=== PATIENT | male | born 1990 | race Caucasian/White ===

== ENCOUNTER → 2020-11-12 11:12 | Outpatient (CLI) | payer OTHER, SELFPAY ==
[2015-02-07 23:48] VITALS: BMI 29.5
[2020-11-12 14:51] LABS: Absolute Lymphocyte Count 2.18 X10^3/uL (0.83-4.51); Absolute Neutrophil Count 4.3 X10^3/uL (2.0-7.7); Basophil# 0.02 X10^3/uL; Basophil% 0.3 % (0-1); Eosinophil# 0.07 X10^3/uL; Hematocrit 46.4 % (40-54); Hemoglobin 15.4 g/dL (13.0-16.5); Lymphocyte # 2.18 X10^3/ul (0.83-4.51); Lymphocyte % 30.7 % (19-41); Mean Corp Hgb Conc 33.2 g/dL (32-36); Mean Corpuscular Hgb 29.4 pg (27.0-32.0); Mean Corpuscular Volume 88.7 fL (80-94); Mean Platelet Vol. 12.1 fl (6.2-12.0); Monocyte% 7.1 % (0-10); NRBC Flagged by Analyzer 0 % (0-5); Neutrophil % 60.6 % (47-70); Platelet Count 234 K/mm3 (150-450); RBC Distribution Width CV 12.1 % (11.6-14.6); RBC Distribution Width SD 38.9 fl (35.1-43.9); Red Blood Count 5.23 M/mm3 (4.6-6.2); White Blood Count 7.1 K/mm3 (4.4-11.0)
[2020-11-12 15:22] LABS: Anion Gap 4 (5-15); BUN 11 mg/dL (7-18); Calcium,Total 8.4 mg/dL (8.5-10.1); Chloride 106 mmol/L (98-107); EST Glomerular Filtration Rate 84 mL/min (>60); Est Glom Filt Rate - Afr Amer 101 mL/min (>60); Glucose 92 mg/dL (74-106); Potassium 3.8 mmol/L (3.5-5.1); Sodium Level 139 mmol/L (136-145); Thyroid Stim Hormone (TSH) 1.31 uIU/mL (0.358-3.74)
== END ==
PROVIDERS: PCP Family Medicine; Referring Provider Family Medicine; Visit Provider Family Medicine
DX: R55 Syncope and collapse (principal)
CPT/HCPCS: 36415; 80048; 84443; 85025

== ENCOUNTER 2020-12-17 22:07 | Emergency (ER) | payer OTHER, SELFPAY ==
[2020-12-17 22:09] VITALS: BP 147/88; PULSE 99; RESP 18; TEMP 36.9; O2SAT 98; BMI 34.7
--- NOTE | 2020-12-17 22:32 | EKG12_ITS ---
Test Reason : CP Blood Pressure : / mmHG Vent. Rate : 085 BPM Atrial Rate : 085 BPM P-R Int : 148 ms QRS Dur : 096 ms QT Int : 370 ms P-R-T Axes : 040 066 036 degrees QTc Int : 440 ms Normal sinus rhythm with sinus arrhythmia Normal ECG Confirmed by JEF FREEMAN, AMILCAR ([id number]), industrial editor SHEFALI TRIPATHI ([id number]) on 12/19/2020 9:48:52 AM Referred By: ANKIT Confirmed By:AMILCAR FUCHS MD
--- NOTE | 2020-12-17 22:35 | EDS_ITS ---
HPI History of Present Illness Chief Complaint: Chest Pain Informant: patient Narrative Narrative: Patient is a 30-year-old previously healthy male who presents to the emergency department for chest pain. He states this started around to half hour prior to arrival in the ED. He described it as a pressure sensation. It did go into his back. It is mostly substernal. He denies ever having it before in the past. He denies any significant shortness of breath with this. No heart palpitations. No lightheadedness or syncope episodes. He denies any recent illness including any cough, cold, congestion. No fevers or chills. No nausea/vomiting. Denies any leg swelling or calf pain. He states that his father does have a history of CAD with bypass at the age of late 50s. Patient states he does smoke cigarettes sometimes. [facility] Home Medications NK 12/17/20 [History Last Taken Unknown] Allergy/AdvReac Type Severity Reaction Status Date / Time No Known Allergies Allergy Verified 12/17/20 22:09 Social History Smoking Status: Current every day smoker tobacco type: cigarettes ROS ROS ED Constitutional Constitutional ED: Denies chills or fever(s) Eyes Eyes: Denies change in vision ENT ENT ED: Denies epistaxis or rhinorrhea Cardiovascular Cardiovascular: Reports chest pain; Denies palpitations Respiratory/Chest Respiratory/Chest: Denies cough, dyspnea or dyspnea on exertion Gastrointestinal Gastrointestinal: Denies abdominal pain, diarrhea, nausea or vomiting Musculoskeletal Musculoskeletal: Denies back pain or neck pain Integumentary Denies rash Neurologic Neurologic: Denies dizziness, headache(s) or weakness EXAM Physical Exam Const Vital Signs: 12/17/20 22:09 12/17/20 22:12 12/17/20 23:51 Temperature 98.5 F Temperature Source Oral Pulse Rate 99 62 Respiratory Rate 18 18 Respiratory Effort Normal Non-Labored Blood Pressure 147/88 H 118/72 Blood Pressure Mean 107 Pulse Ox 98 97 Oxygen Delivery Method Room Air Positive well nourished and well developed General Appearance ED: well developed and NAD HEENT Reports normocephalic and head/scalp atraumatic Eyes PERRL and EOMs intact bilaterally Neck supple Chest Wall inspection of chest normal Resp normal respiratory effort and clear to auscultation bilaterally Auscultation: Negative for rales, rhonchi or wheezes Cardio regular rate, regular rhythm and no murmurs GI normal to inspection, nondistended, normoactive bowel sounds and non-tender Palpation: soft; Negative for guarding or rebound tenderness present Extremity normal to inspection General Extremety ED: Negative for edema or tenderness General Extremity: Negative for edema Neuro oriented x3, CN's II-XII intact bilaterally and no sensory deficits noted Sensorium / Orientation: alert Motor Exam: strength 5/5 throughout Psych mental status grossly normal Skin no rashes or lesions noted Heart Score History: Slightly/Non-Suspicious ECG: Normal Age: </= 45 years Risk Factors: 1 or 2 Risk Factors Troponin: </= Normal Limit Score: 1 MDM MDM MDM Narrative Medical decision making narrative: Patient presents the ED for chest pain. This is not related to exertion. It is nonpleuritic. On arrival to the ED is not tachycardic and satting 98% on room air. He is in no acute distress. Patient has a low heart score. EKG, chest x-ray basic lab work obtained. Patient's work-up did not reveal any significant acute abnormality. Is not anemic. Does not have a high white blood cell count. No electrolyte disturbance. Troponin within normal limits. He is a heart score of 1. Low concern for aortic catastrophe, ACS or thromboembolism. On reevaluation patient is feeling better. Does feel comfortable being discharged home. He is to follow-up with his PCP. Return precautions are reviewed with him. He understands and is agreeable this plan. All questions were answered. Lab Data Labs: Laboratory Results - last 24 hr 12/17/20 12/17/20 22:10 22:10 WBC 8.1 RBC 5.31 Hgb 15.6 Hct 46.5 MCV 87.6 MCH 29.4 MCHC 33.5 RDW Std Deviation 38.7 RDW Coeff of Elizabeth 12.0 Plt Count 221 MPV 11.4 Immature Gran % (Auto) 0.100 Neut % (Auto) 55.1 Lymph % (Auto) 34.4 Elk % (Auto) 8.6 Eos % (Auto) 1.7 Baso % (Auto) 0.1 Absolute Neuts (auto) 4.4 Absolute Lymphs (auto) 2.77 Nucleated RBC % 0 Sodium 139 Potassium 3.6 Chloride 105 Carbon Dioxide 27.0 Anion Gap 7 BUN 13 Creatinine 1.23 Estim Creat Clear Calc 85.73 Est GFR (MDRD) Af Amer 89 Est GFR (MDRD) Non-Af 74 BUN/Creatinine Ratio 10.6 Glucose 131 H Calcium 8.7 Troponin I High Sens 3.0 Radiography Chest X-Ray - ED: 1 View (Single view portable x-ray interpreted by myself. Clear lung palomo bilaterally. No pleural effusions. Normal cardiac silhouette. Normal mediastinum. No acute cardiopulmonary abnormality.) Diagnostic Testing: Radiology Impression Chest X-Ray 12/17/20 22:41 IMPRESSION: No radiographic evidence of acute cardiopulmonary disease. at 2312 Reported and signed by: Rolo Sultana MD Electronically Signed: Rolo Sultana MD at 23:11 EDT Tel , Service support , EKG Initial EKG: Attestation: I personally reviewed and interpreted this EKG as follows: (Rate of 85 bpm and normal sinus rhythm. Normal intervals. Normal axis. No significant ST elevations or depressions. No T wave abnormalities.) Discharge Plan Triage Chief Complaint: Chest Pain ED Provider: Prabhjot Young Dx/Rx/DC Orders Clinical Impression: Chest pain Instructions: ED Chest Pain, Noncardiac Prescriptions: No Action NK RF: 0 Primary Care Provider: González Worthy Referrals: González Worthy MD [Primary Care Provider] - 3-5 Days Disposition Disposition: Home, Self Care Discharge Date/Time: 12/17/20 23:55
--- NOTE | 2020-12-17 22:41 | RAD_ITS ---
EXAM: XR CHEST, 1 VIEW : 1990 CLINICAL INDICATION: chest pain TECHNIQUE: Frontal view of the chest. This report was created using [employer] report generation technology. COMPARISON: None. FINDINGS: LUNGS AND PLEURAL SPACES: Unremarkable. No consolidation or edema. No pneumothorax. No effusion. HEART: Unremarkable. Cardiac silhouette not enlarged. MEDIASTINUM: Central airways and mediastinal contour are unremarkable. BONES/JOINTS: Unremarkable. SOFT TISSUES: Unremarkable. RAD/Chest 1 View (Portable) IMPRESSION: No radiographic evidence of acute cardiopulmonary disease. at 2312 Reported and signed by: Rolo Sultana MD Electronically Signed: Rolo Sultana MD at 23:11 EDT Tel , Service support ,
[2020-12-17 23:01] LABS: Absolute Lymphocyte Count 2.77 X10^3/uL (0.83-4.51); Absolute Neutrophil Count 4.4 X10^3/uL (2.0-7.7); Basophil# 0.01 X10^3/uL; Basophil% 0.1 % (0-1); Eosinophil# 0.14 X10^3/uL; Eosinophils% 1.7 % (0-5); Hematocrit 46.5 % (40-54); Hemoglobin 15.6 g/dL (13.0-16.5); Lymphocyte # 2.77 X10^3/ul (0.83-4.51); Lymphocyte % 34.4 % (19-41); Mean Corp Hgb Conc 33.5 g/dL (32-36); Mean Corpuscular Hgb 29.4 pg (27.0-32.0); Mean Corpuscular Volume 87.6 fL (80-94); Mean Platelet Vol. 11.4 fl (6.2-12.0); Monocyte# 0.69 X10^3/uL; Monocyte% 8.6 % (0-10); NRBC Flagged by Analyzer 0 % (0-5); Neutrophil # 4.44 X10^3/uL (2.7-7.7); Neutrophil % 55.1 % (47-70); Platelet Count 221 K/mm3 (150-450); RBC Distribution Width SD 38.7 fl (35.1-43.9); Red Blood Count 5.31 M/mm3 (4.6-6.2); White Blood Count 8.1 K/mm3 (4.4-11.0)
[2020-12-17 23:04] LABS: Anion Gap 7 (5-15); BUN 13 mg/dL (7-18); BUN/Creat Ratio 10.6 RATIO (10-20); Calcium,Total 8.7 mg/dL (8.5-10.1); Chloride 105 mmol/L (98-107); Creatinine, Serum 1.23 mg/dL (0.70-1.30); EST Glomerular Filtration Rate 74 mL/min (>60); Est Glom Filt Rate - Afr Amer 89 mL/min (>60); Estimated Creatinine Clearance 85.73 ml/min; Glucose 131 mg/dL (74-106); Potassium 3.6 mmol/L (3.5-5.1); Sodium Level 139 mmol/L (136-145)
[2020-12-17 23:51] VITALS: BP 118/72; PULSE 62; RESP 18; O2SAT 97
== END 2020-12-17 23:55 | disposition home or self-care (01) ==
PROVIDERS: Emergency Provider Emergency Medicine; PCP Family Medicine
DX: R07.9 Chest pain, unspecified (principal); F17.210 Nicotine dependence, cigarettes, uncomplicated
CPT/HCPCS: 71045; 80048; 84484; 85025; 93005; 99284

== ENCOUNTER → 2021-04-21 10:49 | Outpatient (CLI) | payer OTHER, SELFPAY ==
[2021-04-21 12:31] LABS: Absolute Lymphocyte Count 1.83 X10^3/uL (0.83-4.51); Absolute Neutrophil Count 2.6 X10^3/uL (2.0-7.7); Basophil# 0.01 X10^3/uL; Basophil% 0.2 % (0-1); Eosinophil# 0.03 X10^3/uL; Eosinophils% 0.6 % (0-5); Hematocrit 47.8 % (40-54); Lymphocyte # 1.83 X10^3/ul (0.83-4.51); Lymphocyte % 36.2 % (19-41); Mean Corp Hgb Conc 33.5 g/dL (32-36); Mean Corpuscular Hgb 29.4 pg (27.0-32.0); Mean Corpuscular Volume 87.7 fL (80-94); Mean Platelet Vol. 11.4 fl (6.2-12.0); Monocyte# 0.57 X10^3/uL; Monocyte% 11.3 % (0-10); NRBC Flagged by Analyzer 0 % (0-5); Neutrophil % 51.5 % (47-70); Platelet Count 241 K/mm3 (150-450); RBC Distribution Width CV 11.9 % (11.6-14.6); RBC Distribution Width SD 37.9 fl (35.1-43.9); Red Blood Count 5.45 M/mm3 (4.6-6.2); White Blood Count 5.1 K/mm3 (4.4-11.0)
[2021-04-21 12:39] LABS: Anion Gap 7 (5-15); BUN 12 mg/dL (7-18); BUN/Creat Ratio 10.3 RATIO (10-20); Calcium,Total 8.7 mg/dL (8.5-10.1); Chloride 103 mmol/L (98-107); Creatinine, Serum 1.16 mg/dL (0.70-1.30); EST Glomerular Filtration Rate 79 mL/min (>60); Est Glom Filt Rate - Afr Amer 95 mL/min (>60); Glucose 96 mg/dL (74-106); Potassium 3.9 mmol/L (3.5-5.1); Sodium Level 138 mmol/L (136-145)
== END ==
PROVIDERS: PCP Family Medicine; Visit Provider Physician Assistant Medical
DX: R00.0 Tachycardia, unspecified (principal); R07.9 Chest pain, unspecified; R55 Syncope and collapse
CPT/HCPCS: 36415; 80048; 85025

== ENCOUNTER → 2021-04-22 07:47 | Outpatient (CLI) | payer OTHER, SELFPAY ==
--- NOTE | 2021-04-22 07:49 | ECHOCS_ITS ---
Reason For Study: SYNCOPE/NEAR SYNCOPE Procedure This was a 2D Doppler, Color Flow transthoracic echocardiogram. The study was technically difficult. Contrast injection was performed. Exam performed in department. Left Ventricle Normal left ventricle. Left ventricular systolic function is normal. The estimated ejection fraction is 60 %. No regional wall motion abnormalities noted. Right Ventricle Normal RV size. Normal systolic function. Atria Normal left atrium. Normal right atrium. Mitral Valve Normal mitral valve. Tricuspid Valve Normal tricuspid valve. Aortic Valve Trisinus/trileaflet aortic valve. Normal aortic valve. Pulmonic Valve Normal pulmonic valve. Great Vessels Normal aortic root. The pulmonary artery is normal size. Normal inferior vena cava. Pericardium/Pleural No pericardial effusion. Medication 22 gauge I.V. with prn adaptor inserted into left arm. Diluted definity 3.5ml given slow IV push to enhance endocardial definition. MMode/2D Measurements & Calculations LVIDd: 5.1 cm IVSd: 0.95 cm Ao root diam: 3.1 cm LVIDs: 3.6 cm LVPWd: 0.97 cm RVDd: 3.7 cm FS: 30.2 % LAV(MOD-bp): 42.0 ml LVAd ap4: 36.9 cm2 SV(MOD-sp4): 64.7 ml LAV(MOD-bp) Indexed: 19.1 ml/m2 LVLd ap4: 9.4 cm LAV(MOD-sp2): 37.5 ml EDV(MOD-sp4): 118.8 ml LAV(MOD-sp4): 39.6 ml EDV(sp4-el): 122.6 ml LVAs ap4: 21.6 cm2 LVLs ap4: 7.4 cm ESV(MOD-sp4): 54.0 ml ESV(sp4-el): 53.6 ml EF(MOD-sp4): 54.5 % EF(sp4-el): 56.3 % SV(sp4-el): 69.0 ml LA A4 area: 16.9 cm2 LA dimension(2D): 3.7 cm RA A4 area: 12.5 cm2 Doppler Measurements & Calculations MV E max dat: 50.7 cm/sec Lat Peak E' Dat: 15.2 cm/sec Med Peak E' Dat: 9.3 cm/sec MV A max dat: 59.4 cm/sec E/E' lat: 3.3 E/E' med: 5.5 MV E/A: 0.85 Ao V2 max: 114.1 cm/sec LV V1 max: 102.5 cm/sec PA V2 max: 135.6 cm/sec Ao max P.2 mmHg LV V1 max P.2 mmHg PI end-d dat: 105.2 cm/sec TR max dat: 194.4 cm/sec TR max P.1 mmHg ECHO/Echo Complete W/ Contrast Interpretation Summary Normal left ventricle. Left ventricular systolic function is normal. The estimated ejection fraction is 60 %. Structurally normal valves. Contrast injection was performed. Ordering Physician: Sai Foster Referring Physician: AMILCAR FISH Performed By: Nyasia Thorne, YADIRA, RVT
--- NOTE | 2021-04-22 17:07 | PCM.TILTTABL ---
Summary Pre Test Resting HR: 95 Pre Test Resting BP: 144/73 Minimum Test HR: 84 Maximum Test HR: 117 Minimum Test BP: 134/91 Maximum Test BP: 162/82 Reason for Test Termination: Reached Maximum Test Time Physician Tilt Table Report Patient's Physicians Primary Care Physician: González Worthy Cnc Lathe Machinist: Sai Foster Indications/Diagnosis: Near syncope Procedure Comments: The patient was brought to the noninvasive lab in the postabsorptive nonsedated state. Informed consent was obtained. Baseline EKG was obtained. It demonstrated normal sinus rhythm with a rate of 95 bpm. Baseline blood pressure was 144/73 mmHg. The patient was then placed in the 70 degree head upright tilt table position for period of approximately 30 minutes. The patient maintained sinus rhythm throughout the recording with continuous EKG monitoring. The maximum heart rate attained was 118 bpm which was sinus tachycardia with a maximum blood pressure being 147/86 mmHg. The minimum heart rate was noted to be 84 bpm in sinus rhythm recorded at the end of the test. No hypotensive episodes were noted and no significant symptomatology was noted. The patient maintained sinus rhythm throughout the recording. Summary: Negative tilt table test for any cardiac dysrhythmias of vasodepressor symptoms/findings
[2021-04-22 17:10] VITALS: BP 134/91; BP 144/73; BP 162/82
== END ==
PROVIDERS: PCP Family Medicine; Referring Provider Internal Medicine Cardiovascular Disease; Visit Provider Internal Medicine Cardiovascular Disease
DX: R55 Syncope and collapse (principal); R00.0 Tachycardia, unspecified; R11.0 Nausea
CPT/HCPCS: 93306; 93660; J7040; Q9957; A4216; C8929; J3490

== ENCOUNTER 2021-05-21 05:18 | Day surgery (SDC) | payer OTHER, BC, SELFPAY ==
[2021-05-21] VITALS (7 sets, daily range): BP systolic 110–130; BP diastolic 66–75; PULSE 73–95; RESP 16; TEMP 36.1–36.7; O2SAT 94–98; BMI 35.9
[2021-05-21] MEDS: Lactated Ringers 1,000 ML 15 ML IV (05:40)
--- NOTE | 2021-05-21 06:30 | IMM_PTH ---
PATIENT: BELIA GARCIA LOC: EN U#:[id number] AGE/SX: 31/M ROOM: RE05/21/[address]: Dr. Ilan Eastman DO : 1990 BED: DIS: 05/21/2021 SPEC #: [id number] RECD: 05/21/21 13:37 STATUS: JULIO REQ #: [id number] KAITLYN: 05/21/21 06:[address]: Ilan Eastman DEPT: IMMUNOHISTOCHEMISTRY RECD BY: Sari Johnston ENTERED: 05/21/21 13:37 SP TYPE: IMMUNO OTHR DR: Dr. González Worthy MD Tissues: B - Stomach, NOS Procedures: H Pylori (initial) PHYSICIAN & INSTITUTION [place] [id number] SPECIMEN INFORMATION: Tissue Source: B ? Gastric antral biopsy Clinical Info: Nausea Specimen Number: [id number] CPT code: 68114 METHODOLOGY: Deparaffinized sections of prefer/formalin-fixed tissue or PAP/DQ stained slides are incubated with monoclonal/polyclonal antibodies/oligonucleotide probes. Localization is made via biotin free immunoperoxidase method. Appropriate controls are performed and reacted as expected. Results on target cell population are indicated in the following table: RESULTS: ANTIBODY / CLONE RESULT Block B H Pylori (polyclonal) negative These tests were developed and their performance characteristics determined by [facility]. They may not have been cleared or approved by the U.S. Food and Drug Administration. The FDA has determined that such clearance or approval is not necessary. INTERPRETATION: B. Gastric antral biopsy: Negative for Helicobacter pylori organisms. SJ:sree 05/22/2021
--- NOTE | 2021-05-21 06:30 | EGD_PTH ---
PATIENT: BELIA GARCIA LOC: EN U#:[id number] AGE/SX: 31/M ROOM: RE05/21/[address]: Dr. Ilan Eastman DO : 1990 BED: DIS: 05/21/2021 SPEC #: [id number] RECD: 05/21/21 10:37 STATUS: JULIO RESunny #: [id number] KAITLYN: 05/21/21 06:[address]: Ilan Eastman DEPT: SURGICAL PATHOLOGY RECD BY: Charlotte Lyle ENTERED: 05/21/21 12:24 SP TYPE: EGD BIOPSY OT DR: Dr. González Worthy MD Tissues: A - Duodenum, NOS B - Gastric mucous membrane C - Esophagus, NOS Procedures: Special Stain Group II Surgery Specimen Level IV Alcian Blue/PAS (control) HEADER OPERATION: EGD ([place]), [place] PH probe PRE-OP DIAGNOSIS: Nausea TISSUE SUBMITTED: A ? Duodenal biopsy, B ? Gastric antral biopsy for H. pylori and pathology, C ? Distal esophageal biopsy MICROSCOPIC DIAGNOSIS A. Duodenum, biopsy: Fragments of duodenal mucosa with mild Toshia gland hyperplasia. B. Gastric antrum, biopsy: Mild gastritis. See microscopic description and comment. C. Distal esophageal biopsy: Fragments of gastroesophageal mucosa with moderate chronic inflammation, congestion and hemorrhage. Intestinal metaplasia (goblet cell metaplasia) not identified. See comment. SJ:sree 05/22/2021 COMMENT B. The results of immunohistochemistry for Helicobacter pylori will be reported separately ([id number]). C. Alcian blue/PAS stain with matched control is used in the evaluation of the specimen. MICROSCOPIC DESCRIPTION Slides are reviewed. B. The specimen shows fragments of gastric mucosa with chronic inflammatory cell infiltrates in the lamina propria consisting of lymphocytes and plasma cells, consistent with mild chronic gastritis. Focal mucosal congestion is also noted. GROSS DESCRIPTION A - Received in fixative is one container labeled with the patient's name and designated duodenal biopsy. The specimen consists of multiple irregular fragments of light farah soft tissue that in aggregate measure 1.5 x 0.2 x 0.1 cm. The specimen is totally submitted in one cassette. B - Received in fixative is one container labeled with the patient's name and designated gastric antral biopsy. The specimen consists of multiple irregular fragments of light farah soft tissue that in aggregate measure 1 x 0.3 x 0.1 cm. The specimen is totally submitted in one cassette. C - Received in fixative is one container labeled with the patient's name and designated distal esophageal biopsy. The specimen consists of multiple irregular fragments of light farah soft tissue that in aggregate measure 1 x 0.8 x 0.1 cm. The specimen is totally submitted in one cassette. / SJ:rg 05/21/21 TC:3 CPT: 35289 x3, 28389
--- NOTE | 2021-05-21 06:43 | PCM.HP.BLA ---
History and Physical Date of Admission: 05/21/21 BELIA GARCIA, is a 31 M who presents with a forceful heartbeat that was followed by lightheadedness and near syncope. He did have a 24-hour Holter monitor which demonstrated an average heart rate of 64 bpm, minimum of 42 bpm and a maximum of 132 bpm which was in sinus rhythm. EKG from his emergency room visit in November demonstrated sinus rhythm with a rate of 85 bpm with sinus arrhythmia. He was started on metoprolol(this was started by and encouraged to have use ELIDA hose. Dr. Cronin worked him up for YESSY- this was negative. Pt does not feel any better on the metoprolol. He thinks that his issues were related to GI issues. He notes that when he stops his PPI he feels that he is nausea is back. This is chronic. He notes that when he over exerts himself he feels nauseated. He is able to go to the gym without issues. He finds that he needs to drink water to help with his symptoms. This is multiple times a day that this occurs. He feels that he gets overheated at times, thats when his nausea starts and feels like he might pass out. 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 Since July he has been having difficulty with feeling nauseous when riding in vehicles. He went to training in [facility] when he noted progression to feeling nauseous with emesis occurring with significant heat changes or his body temperature feels too warm but without physical exertion. However, definitive trigger not identified. Denies vertigo and spinning but reports a tunnel vision experience. PCP seen who felt it was sleep apnea, seen by inspector wire rope who referred to this office as there were no lung issues. Saw Straightener seen and given omeprazole 40mg BID. Omeprazole was unhelpful. Things that are helpful include position change, cool water bottle to lower body temperature. Seen by [facility] to r/o cardiac issues with no abnormal reported. Used Zegerid (20mg omeprazole with 1100mg sodium bicarbonate) and has found this to be most helpful. ROS Const Constitutional: Positive for weight change ENT ENT: Positive for nasal congestion and sore throat Cardio Cardiology: Positive for shortness of breath Gastro GI: Positive for bloating, heartburn and nausea/dyspepsia Psych Psychiatric: Positive for anxiety Endo Endocrine: Positive for weight change Exam Const General: cooperative and comfortable Nutritional Appearance: average body habitus and well nourished [facility] Head: normal to inspection Ears: hearing grossly normal bilaterally Nose: external nose normal Face and sinus: normal facial exam Mouth: oral mucosae normal Throat: posterior oropharynx normal Eyes General: appearance normal, both eyes and all related structures Neck Neck: normal visual inspection Chest Chest palpation & inspection: normal inspection of the chest and normal palpation of entire chest wall Resp Effort & Inspection: normal respiratory effort Auscultation: Bilateral: Clear to Auscultation Cardio Palpation: normal PMI Rate: regular rate Rhythm: regular rhythm GI Inspection: normal to inspection Auscultation: normal bowel sounds Percussion: normal to percussion Palpation: no hepatosplenomegaly Skin General: no rashes or lesions noted Neuro General: patient alert Extrem General: normal to inspection Psych Affect: normal affect Quality Reporting Tobacco Screening ([facility]) Smoking Status: Current every day smoker Assessment and Plan Assessment and Plan (1) Nausea: Status: Acute Orders: Orders: EGD with 48 pH probe Today Referrals: Gastroenterology Plan - Dr. Talavera Friend, DO: He could be having symptoms of atypical reflux disease. We will give him prescription for Dexilant as he got better with Zegerid therapy. Zegerid is 20 mg of omeprazole +20 mg of sodium bicarbonate. We will put him on Dexilant therapy which is 60 mg total with 40 mg of omeprazole 20 mg of sodium bicarbonate. We will also perform upper endoscopy with pH monitoring to see if he really has reflux disease. This will be on medicine. Plan Details Other Medications: New: dexlansoprazole (Dexilant) 60 mg PO DAILY 30 caps 1RF I have re-examined the patient. There are no clinical changes since date of exam.
--- NOTE | 2021-05-21 07:11 | OP.EGD_ITS ---
Patient Name: Yohannes Bridges Procedure Date: 05/21/2021 6:16 AM Date of : 1990 Age: 31 Procedure: Upper GI endoscopy Indications: Heartburn Providers: Ilan Eastman DO Medicines: See the Anesthesia note for documentation of the administered medications Patient Profile: This is a 31 year old male. Refer to note in patient chart for documentation of history and physical. Patient has symptoms of chronic nausea. Complications: No immediate complications. Procedure: Pre-Anesthesia Assessment: - Prior to the procedure, a History and Physical was performed, and patient medications and allergies were reviewed. The patient is competent. The risks and benefits of the procedure and the sedation options and risks were discussed with the patient. All questions were answered and informed consent was obtained. Patient identification and proposed procedure were verified by the physician in the pre-procedure area. Mental Status Examination: alert and oriented. Airway Examination: normal oropharyngeal airway and neck mobility. Respiratory Examination: clear to auscultation. CV Examination: normal. Prophylactic Antibiotics: The patient does not require prophylactic antibiotics. Prior Anticoagulants: The patient has taken no previous anticoagulant or antiplatelet agents. After reviewing the risks and benefits, the patient was deemed in satisfactory condition to undergo the procedure. The anesthesia plan was to use moderate sedation / analgesia (conscious sedation). Immediately prior to administration of medications, the patient was re-assessed for adequacy to receive sedatives. The heart rate, respiratory rate, oxygen saturations, blood pressure, adequacy of pulmonary ventilation, and response to care were monitored throughout the procedure. The physical status of the patient was re-assessed after the procedure. After obtaining informed consent, the endoscope was passed under direct vision. Throughout the procedure, the patient's blood pressure, pulse, and oxygen saturations were monitored continuously. The gastroscope was introduced through the mouth, and advanced to the second part of duodenum. The upper GI endoscopy was accomplished without difficulty. The patient tolerated the procedure well. Moderate Sedation: Moderate (conscious) sedation was administered by the endoscopy nurse and supervised by the endoscopist. The patient's oxygen saturation, heart rate, blood pressure and response to care were monitored. Total physician intraservice time was 15 minutes. Scope In: 6:48:32 AM Scope Out: 6:59:44 AM Total Procedure Duration Time 0 hours 11 minutes 12 seconds Findings: LA Grade C (one or more mucosal breaks continuous between tops of 2 or more mucosal folds, less than 75% circumference) esophagitis with no bleeding was found 37 to 40 cm from the incisors. Biopsies were taken with a cold forceps for histology. Verification of patient identification for the specimen was done. Estimated blood loss was minimal. The SHEPARD capsule with delivery system was introduced through the mouth and advanced into the esophagus, such that the SHEPARD pH capsule was positioned 32 cm from the incisors, which was 6 cm proximal to the GE junction. Suction was applied to the well of the SHEPARD pH capsule to suck in the adjacent mucosa of the esophagus using the external vacuum pump set at a minimum vacuum pressure of 550 mmHg for 30 seconds. The SHEPARD pH capsule was then deployed by depressing the plunger on top of the handle to advance the locking pin into the mucosa, thereby attaching the capsule to the esophagus. The plunger was then rotated a quarter turn clockwise to release the capsule from the delivery system. The delivery system was then withdrawn. Endoscopy was utilized for probe placement and diagnostic evaluation. A small hiatal hernia was present. Patchy mildly erythematous mucosa without bleeding was found at the pylorus. This was biopsied with a cold forceps for histology. Verification of patient identification for the specimen was done. Estimated blood loss was minimal. Patchy mildly erythematous mucosa without active bleeding and with no stigmata of bleeding was found in the first portion of the duodenum. Impression: - LA Grade C reflux esophagitis. Rule out Saldaña's esophagus. Biopsied. - Small hiatal hernia. - Erythematous mucosa in the pylorus. Biopsied. - Erythematous duodenopathy. - The SHEPARD pH capsule was positioned 32 cm from the incisors, which was 6 cm proximal to the GE junction. Recommendation: - Discharge patient to home. - Resume regular diet. - Continue present medications. - Await pathology results. - Repeat upper endoscopy in 1 year for surveillance based on pathology results. - Return to GI office in 2 weeks. Procedure Code(s): --- Professional --- 22176, Esophagogastroduodenoscopy, flexible, transoral; with biopsy, single or multiple 01964, Esophagus, gastroesophageal reflux test; with mucosal attached telemetry pH electrode placement, recording, analysis and interpretation 85651, 59, Moderate sedation services provided by the same physician or other qualified health healthcare network consultant performing the diagnostic or therapeutic service that the sedation supports, requiring the presence of an independent trained observer to assist in the monitoring of the patient's level of consciousness and physiological status; initial 15 minutes of intraservice time, patient age 5 years or older CPT copyright 2017 [employer]. All rights reserved. The codes documented in this report are preliminary and upon firer marine review may be revised to meet current compliance requirements. Ilan Eastman DO 05/21/2021 7:10:57 AM This report has been signed electronically. Number of Addenda: 1 Note Initiated On: 05/21/2021 6:16 AM Addendum Number: 1 Addendum Date: 01/28/2022 7:27:14 AM MAC was used instead of moderate sedation for the patient. Ilan Eastman DO 01/28/2022 7:27:18 AM This report has been signed electronically.
--- NOTE | 2021-05-21 07:12 | OP.CCLET_ITS ---
01/28/2022 González Worthy MD [address] [id number] Re : Upper GI endoscopy procedure for Yohannes Menjivarham Dear Dr. Worthy This procedure was performed on Friday, May 21, 2021. My impressions and recommendations are as follows: Impressions : - LA Grade C reflux esophagitis. Rule out Saldaña's esophagus. Biopsied. - Small hiatal hernia. - Erythematous mucosa in the pylorus. Biopsied. - Erythematous duodenopathy. - The SHEPARD pH capsule was positioned 32 cm from the incisors, which was 6 cm proximal to the GE junction. Recommendations : - Discharge patient to home. - Resume regular diet. - Continue present medications. - Await pathology results. - Repeat upper endoscopy in 1 year for surveillance based on pathology results. - Return to GI office in 2 weeks. My findings are described in the full procedure note, which is enclosed. If I can be of further assistance, please feel free to contact me at . Sincerely, Ilan Eastman, 05/21/2021 7:10:57 AM This report has been signed electronically.
--- NOTE | 2021-06-05 16:20 | PCM.OP.PRO ---
Assessment & Plan Assessment/Plan (1) Esophagitis: PLAN: 1. Erosive esophagitis proven by a DeMeester score of 37.1 on day 1 with maximal acid exposure in the supine position on day 1. 2. erosive esophagitis proven by DeMeester score of 42.4 on day 2 with maximum acid exposure in an upright position. Plan is for esophageal manometry to evaluate his esophagus to see if he can undergo possible fundoplication procedure. Procedure Report Yohannes is a very pleasant 31-year-old gentleman who underwent an upper endoscopy on PPI therapy for refractory reflux disease. He underwent an EGD and he had the presence of LA grade C erosive esophagitis that was seen. Biopsies were taken did not show any signs of Saldaña's esophagus. He was also determined to have an incompetent lower esophageal sphincter. 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 He had a pH Kimbrough probe placed at 34 cm from the incisors. His GE junction was at 40 cm. The medication that he was on during this procedure was omeprazole 40 mg twice a day. Findings: -Increased acid exposure throughout a 48-hour Kimbrough study. -DeMeester score on day 1 was 37.1 with maximal acid exposure in the upright position. -DeMeester score on day 2 was 42.4 with maximal acid exposure in the supine position. His symptom associated-probability for heartburn was 97.8% therefore regurgitation was 97.6%. Procedures Gastroenterology CF Procedures [id number]: [id number] G-esoph reflx tst w/electrod
== END 2021-05-21 08:01 | disposition home or self-care (01) ==
LOC: EN 05:21 → AC 05:21
PROVIDERS: PCP Family Medicine; Referring Provider Family Medicine; Visit Provider Internal Medicine Gastroenterology
PROC: 0DJ08ZZ Inspection of Upper Intestinal Tract, Via Natural or Artificial Opening Endoscopic (ICD-10-PCS; CPT 43235; principal; 2021-05-21 06:25)
DX: K44.9 Diaphragmatic hernia without obstruction or gangrene (principal); K21.00 Gastro-esophageal reflux disease with esophagitis, without bleeding; R55 Syncope and collapse; F17.200 Nicotine dependence, unspecified, uncomplicated; E66.9 Obesity, unspecified; Z68.35 Body mass index [BMI] 35.0-35.9, adult
CPT/HCPCS: 43239; 88305; 88313; 88342; J7120; J2405

== ENCOUNTER → 2021-07-03 08:45 | Day surgery (SDC) | payer OTHER, BC, SELFPAY ==
[2021-07-03 09:14] VITALS: BP 133/82; PULSE 69; RESP 16; TEMP 36.6; O2SAT 100
[2021-07-03] MEDS: Lidocaine Jelly 2% 20 ML Syringe (URO-JET) 1 APPLIC (09:15)
== END ==
PROVIDERS: PCP Family Medicine; Referring Provider Family Medicine; Visit Provider Internal Medicine Gastroenterology
PROC: F00ZJWZ Instrumental Swallowing and Oral Function Assessment using Swallowing Equipment (ICD-10-PCS; CPT 43235; principal; 2021-07-03 08:55)
DX: R13.10 Dysphagia, unspecified (principal)
CPT/HCPCS: 91010

== ENCOUNTER 2021-07-30 08:01 | Outpatient (CLI) | payer BC, OTHER, SELFPAY ==
--- NOTE | 2021-07-30 08:11 | RAD_ITS ---
STUDY: AIR CONTRAST UPPER GI SERIES and esophagram REASON FOR EXAM: Male, 31 years old. K44.9 - Diaphragmatic hernia without obstruction or gangrene FLUOROSCOPY TIME (if supplied): (36 seconds) minutes/seconds TECHNIQUE: Single CONTRAST AND AIR CONTRAST FLUOROSCOPIC IMAGES. COMPARISON: None. FINDINGS: The cervical esophagus demonstrates normal motility without aspiration. There is no stricture or extrinsic mass effect. No intraluminal polypoid mass is identified. The thoracic esophagus distends well without stricture or mucosal fold thickening. No mucosal ulcerations are identified. There is no extrinsic mass effect. There are no diverticula. No hiatal hernia or gastroesophageal reflux was identified. The patient ingested a 12 mm tablet of barium without any difficulty. The stomach distends well without mucosal fold thickening or mucosal ulceration. There is no intraluminal mass. The duodenal bulb is freely distensible without deformity or ulceration. The duodenal sweep is normal in position and caliber. RAD/Upper GI w/BA Swallow IMPRESSION: Normal air-contrast esophagram and upper GI series. Electronically Signed: Soren Corrales MD at 9:37 EST ,
== END 2021-07-30 23:59 | disposition home or self-care (01) ==
LOC: RAD 08:04
PROVIDERS: PCP Family Medicine; Visit Provider Surgery
DX: K44.9 Diaphragmatic hernia without obstruction or gangrene (principal); K22.4 Dyskinesia of esophagus
CPT/HCPCS: 74246

== ENCOUNTER 2021-08-26 08:35 | Day surgery (SDC) | payer BC, OTHER, SELFPAY ==
[2021-08-26] VITALS (7 sets, daily range): BP systolic 126–150; BP diastolic 74–79; PULSE 88–100; RESP 16–20; TEMP 36.4–36.6; O2SAT 95–99; BMI 38.2
[2021-08-26] MEDS: Lactated Ringers 1,000 ML 15 ML IV (08:45)
--- NOTE | 2021-08-26 09:58 | PCM.HP.BLA ---
History and Physical Date of Admission: 08/26/21 Date of Service: 08/04/21 MR#:[id number]:[id number]: BELIA GARCIA FLYNTRep #:[id number]:1990 Provider:Dr. Collin Rutledge MDAge/Sex: 31/M Location:[facility] [place].WSAStatus:Signed Intake Intake Visit Reasons: Follow up test 07/29 Chief Complaint: discuss results Housing Liaison Required: No Is patient in pain?: No Allergies No Known Allergies Allergy (Verified 08/04/21 08:07) Medications rabeprazole 20 mg tablet,delayed release 20 mg PO BID #60 tab 07/18/21 [Rx Confirmed 08/04/21] PFSH Medical History Alcohol use Anxiety Cardiology follow-up encounter Chest pain Esophagitis Former smoker Gastric reflux History of echocardiogram History of edema Leg cramps Marijuana use Obesity Syncope Tilt table evaluation Varicose vein of leg Surgical History History of esophagogastroduodenoscopy (EGD) (~06/2021) [place] teeth removed Family History Father CAD (coronary artery disease), Onset Age: 52 CABG Hypertension Myocardial infarction Social History Smoking Status: Former smoker HPI HPI HPI: BELIA GARCIA, is a 31 M who presents to the office today for complaints of acid reflux. Initial surgical consultation was 07/29/2021. Patient was then asked to undergo air-contrast esophagram and upper GI series. This he completed the following day on 07/30/2021. He presents today for these results. He denies any changes to his symptoms. He does confirm that he has decided for definitive management with surgery and that both his family and his workplace have pledged support to work around his postoperative recovery. Below is recapitulated from patient's surgical consultation for ease of review: They are referred for surgical consultation from Dr. Eastman of gastroenterology. Patient states that his symptoms began in August 2020. Gradually his symptoms increased in frequency and he initially thought that he was experiencing motion sickness as his nausea would correspond to road trips. However he began experiencing this nausea daily and would be at rest. He states that the symptoms came to a crescendo with a month-long training in [place] as part of his obligation. He noticed symptoms get significantly worse [place] and he became sick daily with hot flashes and sweaty palms. Symptoms were so significant he was dismissed 12 days early from this training and was sent for work-ups of vertigo, sleep apnea, or cardiogenic syncope. During this time, he noticed that lying flat made his symptoms worse. In addition to the nausea he experiences, he does feel acid in his throat and some associated burning. Following his work-ups for any neurologic or cardiogenic causes he was sent to Dr. Eastman who performed an EGD on 05/21/2021. During this investigation patient was diagnosed with LA grade C esophagitis and was placed on Dexilant and Carafate. He also had a pH probe placed during the scope and his final read out gave him a max DeMeester score of 37. In follow-up, he underwent esophageal manometry on 07/15/2021. Results of the study were finding of a slightly low lower esophageal sphincter pressure of 9.3 (range of normal 13-43). Patient states that he actually ran out of his PPI medication following the manometry study and immediately noticed a worsening of his symptoms. Now on medication, he still experiences symptoms at least once daily, but they are much milder. He also claims that the symptoms have a random onset and do not seem particularly linked to mealtimes. As part of his ongoing GI work-up, he was advised to refrain from gluten products and this is something that he has been sticking to, but he was not otherwise restricting other food triggers such as marinara sauces, caffeine, chocolate, etc. He admits that now that he improving with his symptoms he has noticed a small weight gain. Yet the symptoms remain so significant that he is looking to leave his obligation in September 2021?a decision that has not been easy for him as he really did wish to remain in service longer. ROS General General: Yes weight change; No appetite, fatigue, colon cancer, breast cancer or weakness HEENT HEENT: No difficulty swallowing, eye injury, eye surgery, swollen glands or hoarseness Endo Endocrine: No thyroid disease, diabetes mellitus, thyroid cancer, Hair loss, heat intolerance or cold intolerance Musc Musculoskeletal: No back problems, arthritis, rheumatoid arthritis, gout or joint pain Cardio Cardiovascular: No murmur, pacemaker, heart disease, atrial fibrillation, high blood pressure, heart attack, heart stent, palpitations, shortness of breat with exertion or chest pain Psych Psychiatric: No depression, anxiety or hearing voices Resp Respiratory: No shortness of breath, No sleep apnea, No cough, No COPD, No asthma, No emphysema and No wheezing Gastro Gastrointestinal: No abdominal pain, Yes nausea or vomiting, No diarrhea, No constipation, No blood in stool, Yes acid reflux, No hemorrhoids, No ulcers, No gallbladder problem and No black,tarry stools Samson Hematologic: No blood thinners, No blood disorders, No bleeding, No anemia and No blood clots Neuro Neurologic: No weakness Exam Const General: cooperative and healthy appearing Nutritional Appearance: average body habitus Orientation: alert, awake and oriented x3 Assessment and Plan Assessment and Plan (1) Hiatal hernia with GERD: Status: Acute Comment: This is a 31-year-old male with diagnosis of gastroesophageal reflux disease who presents following a significant work-up by gastroenterology for consideration of possible antireflux surgery. His symptoms are admittedly better on medication, but there is a refractory component to them that have led him to alter his life plans (forcing him to leave the early). Work-up to date has included EGD visualizing a hiatal hernia and LA class C esophagitis. pH probe placed during this exam returned a DeMeester score of 37. Follow-up esophageal manometry showed a lower than normal resting LES pressure. Patient completed his air-contrast/barium esophagram and this was read as a normal study. There was specifically no hiatal hernia or gastroesophageal reflux identified. However, given the patient's prior EGD and pH probe findings, this result is taken simply as confirmation of no additional pathology. Therefore, I recommend proceeding with laparoscopic hiatal hernia repair and Sugey fundoplication as previously described to the patient. We again reviewed postoperative expectations and the possibility that he may require overnight observation if he is unable to tolerate p.o. intake postop. He expresses an understanding of this information and has only few questions related to his leave from work. Plan - Dr. Collin Rutledge MD: Schedule for laparoscopic hiatal hernia repair with Sugey fundoplication. Plan for outpatient surgery, but observational stay may be required. I have re-examined the patient. There are no clinical changes since date of exam. Patient states his reflux symptoms have been tolerable. He presents with his and neither have any further questions regarding the procedure. Therefore, we will plan to proceed to the OR for laparoscopic hiatal repair and Sugey fundoplication as discussed above.
[2021-08-26] MEDS: Cefazolin 2 GM in 0.9% Normal Saline 100 ML IV (10:43)
[2021-08-26] MEDS: Bupivacaine Mpf 0.5% 30 ML VIAL (14:17)
[2021-08-26] MEDS: Lidocaine 1% (50 ml mdv) 50 ML Vial (14:17)
--- NOTE | 2021-08-26 14:30 | PCM.OPRPT ---
Report of Operation Date of Procedure: 08/26/21 Pre-Operative Diagnosis: 1. Gastroesophageal reflux disease 2. Hiatal hernia Post-Operative Diagnosis: Same Surgery/Procedure Performed:: 1. Laparoscopic hiatal hernia repair 2. Laparoscopic Sugey fundoplication 3. Esophagogastroscopy Description of Surgical Findings:: ?Normal forget anatomy ?4 cm wrap over esophagus ?Endoscopic picture with a symmetric wrap about the upper esophagus Surgeon: Collin Rutledge hot plate plywood press offbearer: Abelardo Odonnell hot plate plywood press offbearer: Cecille Arizmendi Type of Anesthesia: General/Supplemental Anesthesiologist: Avelino Zamora Drains: NA Estimated Blood Loss (mL): 20 Description of Procedure: After appropriate identification in the preoperative holding area, patient was brought to the operating room. There he was positioned supine on the operating room table. He underwent induction with general endotracheal anesthetic. He was positioned in a lithotomy position using yellowfin leg holders and a beanbag. Care was taken to avoid pressure points. Patient's abdomen was prepped and draped in usual sterile fashion and a formal timeout was conducted to confirm the patient and procedure. Procedure was begun with a Corona entry 15 cm inferior to the costal margin just left of midline superior to the umbilicus. With this technique, pneumoperitoneum was established at 15 mmHg and subsequent laparoscopic investigation revealed no inadvertent injury to the viscera below. Three other trocars were placed approximately a handsbreadth apart so they ultimately resided along para umbilical (right), midclavicular, and anterior axillary lines (left). Lastly a Ravinder liver retractor was placed in the epigastrium also under laparoscopic visualization. This retractor was manipulated to elevate the left lobe of the liver and provide visualization to the diaphragmatic hiatus. The patient's hiatal hernia component was minimal, so dissection was begun by opening the pars flaccida. Dissection was carried onto the side of the right ricci using a laparoscopic harmonic scalpel and carried clockwise around the hiatus. We encountered dense scar tissue along the left ricci and therefore elected to perform a bottom up approach by incising the gastrosplenic ligament and carefully dividing the short gastric vessels all the way up to the left ricci. Both crura were clearly established and we then performed some limited mediastinal dissection to provide greater esophageal excursion into the abdomen taking care to identify the anterior and posterior vagi as well as the parietal pleura. Once we had circumferential dissection, a retroesophageal window was made with blunt dissection and 1/2 inch Johnny drain was placed about this opening to provide further cephalad traction on the stomach. With this traction we identified a few remaining hernia sac adhesions which were taken down with the use of the harmonic scalpel. With cephalad traction this resulted in good 4cm of intra-abdominal esophagus. We next performed a cruralplasty with a single 0 Ethibond suture placed as a [id number] and secured intracorporeally. With this approximation, there was a slight opening between the cruralplasty in the posterior esophagus. Anesthesia then kindly placed a 54 Macanese bougie under laparoscopic guidance into the stomach without difficulty. After this bougie placement, a full fundal wrap was performed. The first suture for the wrap was placed with full-thickness bites through the fundus, diaphragm hiatus, and the wrapped fundus on the contralateral aspect of the esophagus. 2 additional sutures were placed approximately 1 cm inferior to each other incorporating the fundus of the stomach and esophagus. During this process we noticed a serosal?depth tear of the stomach posteriorly. I performed a closure of this area using a single interrupted 3-0 Vicryl tied intracorporeally. Lastly, a endoscopic exam was performed of this wrap and we confirmed that the wrap allowed easy passage of the endoscope. Pictures were obtained of the retroflexed view for documentation. The insufflation of the stomach was evacuated and the scope was withdrawn. Returning to the abdomen, a Ravinder retractor was removed from position under laparoscopic visualization. The 12 mm port sites were closed under laparoscopic guidance using a Azam-Prashant suture passer and 0 Vicryl. Additional local anesthetic was also infiltrated about the left upper quadrant port sites under laparoscopic visualization as a subcostal block to anesthetize the transversus abdominis plane. Then pneumoperitoneum was evacuated. A total of 40 mL of half percent bupivacaine and 1% lidocaine (mixed 50-50) were infiltrated locally about these port sites both prior to insertion and at this point in closure. 4-0 Monocryl was used to close these incisions at the skin in a subcuticular fashion. Steri-Strips and OpSite dressings were applied and the case was formally concluded. They were then delivered to PACU for ongoing recovery.
--- NOTE | 2021-08-26 16:12 | EX.PCM.DISCH ---
Discharge Instructions Diet Discharge Diet: - (Please follow provided diet but stick to clear liquids for the first 48 to 72 hours postop depending on ease of swallowing) Activity Discharge Activity: May Not Drive (Insert no drive) and May Shower Ice area for (Minutes): 20 Lifting Restrictions: No lifting greater than 10 pounds for 2 weeks after surgery Dressing / Incision Call your doctor if your incision/area has: Increased Pain/ Swelling, Increased Redness and Swelling at the incision site Call your doctor if you observe: Fever of 101 or Higher, Uncontrolled pain and - (Swallowing difficulties) Suture Line Care: Avoid Pulling/Pushing Remove Dressing in: 3 days (Please leave Steri-Strips intact until they fall off spontaneously or are taken off at your follow-up visit) Cleanse incision/area with: Soap & Water Follow Up Care Please Follow Up With: Collin Rutledge MD When: 7 to 10 days postop Test Results: Test results from this visit will be discussed in further detail at your follow-up appointment, if applicable. Discharge Plan Admission Primary Reason for Your Visit: Laparoscopic antireflux surgery Attending Provider: Collin Rutledge Primary Care Provider: González Worthy Instructions Patient Instructions: Lap Sugey Fundoplication Dc Discharge Orders/Prescriptions Prescriptions: New oxycodone 5 mg tablet 5 mg PO Q6H PRN (Reason: pain) 2 Days Qty: 14 RF: 0 ondansetron 4 mg tablet,disintegrating 4 mg PO Q6H PRN (Reason: nausea and vomiting) Qty: 10 RF: 0 No Action cefdinir 300 mg Capsule 300 mg PO BID RF: 0 loratadine 10 mg Capsule 10 mg PO DAILY RF: 0 rabeprazole [AcipHex] 20 mg tablet,delayed release (DR/EC) 20 mg PO BID Qty: 60 RF: 2 Referrals / Follow Up: González Worthy MD [Primary Care Provider] - Disposition Disposition (needs filled in before D/C Order can be placed): Home, Self Care
[2021-08-26] MEDS: oxyCODONE 5 MG Tablet PO (16:21)
== END 2021-08-26 23:59 | disposition home or self-care (01) ==
LOC: SDC 08:35 → AC 08:35 → MS3 14:44
PROVIDERS: PCP Family Medicine; Referring Provider Surgery; Visit Provider Surgery
PROC: (CPT 43325; principal; 2021-08-26 09:50)
DX: K44.9 Diaphragmatic hernia without obstruction or gangrene (principal); K21.00 Gastro-esophageal reflux disease with esophagitis, without bleeding; Z20.822 Contact with and (suspected) exposure to COVID-19; Z87.891 Personal history of nicotine dependence
CPT/HCPCS: 43281; 87426; 99406; C9803; J7120; J2405